=== PATIENT | female | born 1990 | race Caucasian/White ===

== ENCOUNTER → 2018-01-16 | Outpatient (CLI) | payer OTHER ==
[2018-01-16 09:22] LABS: BASO # 0.1 10^3/uL (0.0-0.2); BASO % 0.7 % (0.0-1.0); EOS # 0.2 10^3/uL (0.0-0.50); EOS % 2.3 % (0.0-3.0); HEMATOCRIT 42.3 % (36.0-47.0); HEMOGLOBIN 14.4 g/dl (12.0-15.5); IMMATURE GRANULOCYTE % 0.5 % (0-3.0); LYMPH # 2.6 10^3/uL (1.5-6.5); LYMPH % 28.9 % (24.0-44.0); MEAN CORPUSCULAR HEMOGLOBIN 30.9 pg (27.0-33.0); MEAN CORPUSCULAR VOLUME 90.8 fl (80.0-96.0); MONO # 0.6 10^3/uL (0.0-0.8); MONO % 6.8 % (0.0-5.0); NEUTROPHILS # 5.6 10^3/uL (1.8-7.7); NEUTROPHILS % 60.8 % (36.0-66.0); PLATELET COUNT, AUTOMATED 311 10^3/uL (150-450); RED BLOOD COUNT 4.66 10^6/uL (4.00-5.40); RED CELL DISTRIBUTION WIDTH 12.6 % (11.5-14.5); WHITE BLOOD COUNT 9.2 10^3/uL (4.0-10.0)
[2018-01-16 09:57] LABS: ALBUMIN 3.4 GM/DL (3.2-5.2); ALBUMIN/GLOBULIN RATIO 1.03 (1.00-1.93); ALKALINE PHOSPHATASE 67 U/L (45-117); ALT/SGPT 19 U/L (12-78); ANION GAP 6 MEQ/L (8-16); AST/SGOT 11 U/L (7-37); BILIRUBIN,TOTAL 0.3 MG/DL (0.2-1.0); BLOOD UREA NITROGEN 13 MG/DL (7-18); CALCIUM LEVEL 8.8 MG/DL (8.5-10.1); CARBON DIOXIDE LEVEL 27 MEQ/L (21-32); CHLORIDE LEVEL 110 MEQ/L (98-107); CHOLESTEROL LEVEL 164 MG/DL (<200); CHOLESTEROL RISK RATIO 2.562 (<5); CREATININE FOR GFR 0.77 MG/DL (0.55-1.30); FREE T4 0.85 NG/DL (0.76-1.46); GLOMERULAR FILTRATION RATE > 60.0 (>60); GLUCOSE, FASTING 85 MG/DL (70-100); HDL CHOLESTEROL 64 MG/DL (>40); LDL CHOLESTEROL 83.6 MG/DL (<100); NON-HDL-C 100 MG/DL; POTASSIUM SERUM 4.6 MEQ/L (3.5-5.1); SODIUM LEVEL 143 MEQ/L (136-145); TOTAL PROTEIN 6.7 GM/DL (6.4-8.2); TRIGLYCERIDES LEVEL 82 MG/DL (<150)
[2018-01-16 10:13] LABS: VITAMIN B12 LEVEL 317 PG/ML
[2018-01-16 10:15] LABS: FOLATE 10.5 NG/ML
== END ==
LOC: M LAB 08:46
DX: M77.31 Calcaneal spur, right foot (principal); E28.2 Polycystic ovarian syndrome; Z13.220 Encounter for screening for lipoid disorders; R20.2 Paresthesia of skin; M79.671 Pain in right foot
CPT/HCPCS: 73620

== ENCOUNTER → 2018-02-23 | Outpatient (CLI) | payer OTHER | LOC: M RAD 10:29 | DX: M79.671 Pain in right foot (principal) | CPT/HCPCS: 73630 ==

== ENCOUNTER → 2018-05-28 | Outpatient (REF) | payer OTHER | LOC: M SFHCWAGY 10:41 | DX: Z12.4 Encounter for screening for malignant neoplasm of cervix (principal) ==

== ENCOUNTER → 2018-07-27 | Outpatient (REF) | payer OTHER | LOC: M SFHCLERA 11:58 | DX: R30.0 Dysuria (principal) | CPT/HCPCS: 87086 ==

== ENCOUNTER 2018-10-14 11:22 | Day surgery (SDC) | payer OTHER ==
[~2018-10-14] VITALS: Ht 157.5 cm; Wt 121.1 kg
[~2018-10-14 11:22] MED LIST: /ONDA4TA; GLYCOPYRROLATE INJ 0.2 MG/ML 2 ML VIAL As Ordered ONE; LIDOCAINE 2% INJ 100 MG/5 ML SDV (FOR ANES.) As Ordered ONE; MIDAZOLAM INJ 2 MG/2 ML VIAL (J2250) As Ordered ONE; NEOSTIGMINE 10 MG/10 ML VIAL (J2710) As Ordered ONE; ONDANSETRON 4MG/2ML VIAL (J2405) As Ordered ONE; PROPOFOL 200 MG/20 ML VIAL As Ordered ONE; ROCURONIUM BROMIDE 50 MG/5 ML VIAL As Ordered ONE; dexameTHASONE 4 MG/ML 1ML VIAL (J1100) As Ordered ONE; fentaNYL 100 MCG/2 ML INJECTION (J3010) As Ordered ONE
[2018-10-14 11:55] LABS: URINE PREG TEST NEGATIVE (NEGATIVE)
[2018-10-14 12:00] LABS: HEMOGLOBIN 15.1 g/dl (12.0-15.5); MEAN CORPUSCULAR HEMOGLOBIN 30.4 pg (27.0-33.0); MEAN CORPUSCULAR HGB CONC 34.3 g/dl (32.0-36.5); MEAN CORPUSCULAR VOLUME 88.5 fl (80.0-96.0); PLATELET COUNT, AUTOMATED 338 10^3/uL (150-450); RED BLOOD COUNT 4.97 10^6/uL (4.00-5.40); WHITE BLOOD COUNT 8.8 10^3/uL (4.0-10.0)
[2018-10-14] MEDS ORDERED: BUPIVACAINE HCL 0.25% 30 ML VIAL As Ordered ONE (12:22)
[2018-10-14] MEDS ORDERED: LR 1,000 ML IV ONE (13:00)
[2018-10-14] MEDS ORDERED: OXYC1TAB23 PO (13:03)
[2018-10-14] MEDS ORDERED: fentaNYL 100 MCG/2 ML INJECTION (J3010) As Ordered ONE ×2 (13:53→14:42)
[2018-10-14] MEDS ORDERED: fentaNYL 250 MCG/5 ML INJECTION (J3010) As Ordered ONE (14:15)
[2018-10-14] MEDS ORDERED: SUGAMMADEX SODIUM 500 MG/5 ML VIAL (BRIDION) As Ordered ONE (14:28)
[2018-10-14] MEDS ORDERED: PERCOCET 5MG/325MG TAB As Ordered ONE (14:42)
[2018-10-14] MEDS: fentaNYL 100 MCG/2 ML INJECTION (J3010) IV PRN ×4 (14:44→15:10)
[2018-10-14] MEDS ORDERED: PERCOCET 5MG/325MG TAB PO PRN ×2 (14:45)
[2018-10-14] MEDS ORDERED: LR 1,000 ML IV SCH ×2 (14:45)
[2018-10-14] MEDS ORDERED: ONDANSETRON 4MG/2ML VIAL (J2405) IV PRN (14:45)
[2018-10-14] MEDS: HYDROMORPHONE HCL 0.5 MG/ 0.5 ML SYRINGE (J1170 PER 1) IV PRN ×2 (15:16→15:21)
--- NOTE | 2018-10-14 16:10 | RO ---
DATE OF PROCEDURE: 10/14/2018 PREPROCEDURE DIAGNOSIS: Pelvic pain status post Essure. POSTPROCEDURE DIAGNOSIS: Pelvic pain status post Essure. OPERATIVE PROCEDURE: Laparoscopic excision of Essure devices. SURGEON: Mckinley Mars MD ACCOUNTING AUDITOR: ANESTHESIA: General endotracheal. ESTIMATED BLOOD LOSS: Minimal. URINE OUTPUT: 100 mL FINDINGS: Bilateral appropriate placement of Essure devices proximal portion of fallopian tubes. Normal uterus, fallopian tubes and ovaries. Normal upper abdomen. DESCRIPTION OF PROCEDURE: The patient was taken to the operating room where general endotracheal anesthesia was induced. She was prepped and draped in a sterile fashion in the dorsal lithotomy position. A Kaye catheter was placed. A [place] uterine snap tenaculum was placed. A periumbilical incision made with the scalpel. A Veress needle was placed through this incision while tenting up on the skin of the abdomen. Intraabdominal location of the Veress needle was assessed with the use of saline filled syringe. Pneumoperitoneum was created. The Veress needle was removed. A 5 mm trocar using Visiport was inserted through this incision. A 5 mm scope with camera used to visualize the abdomen and pelvis. Two 5 mm suprapubic ports were placed under direct visualization. Grasping instruments were used to grasp the right cornua of the uterus. Endo Cedric were used to dissect the antimesenteric side of the proximal fallopian tube sharply until the Essure device was identified. The remainder of the device was dissected with a combination of blunt and sharp dissection. The device was then grasped with [place] and gently teased out of the surrounding tissue. Device was removed intact on the right. A second fragment of the device, however, was noted and was removed intact. No portion of the fallopian tube was removed. Attention was turned to the left side and the left cornual region was grasped with a grasping instrument and an incision was created using Monopolar Endo Cedric at the antimesenteric side of the fallopian tube until the Essure device was noted. This was dissected free from underlying tissue and removed intact. Good hemostasis was noted after irrigation was performed. The pneumoperitoneum was released. All instruments were removed. Skin was closed with #4-0 Vicryl subcuticular sutures. Sponge, needle and instrument counts were correct. MTDD
[2018-10-14 16:50] VITALS: BP 131/77
== END 2018-10-14 17:00 | disposition home or self-care (01) ==
LOC: M SDC 11:22
PROVIDERS: ATTEND Specialist
DX: R10.2 Pelvic and perineal pain (principal); E28.2 Polycystic ovarian syndrome; R06.83 Snoring; E66.9 Obesity, unspecified; Z68.42 Body mass index [BMI] 45.0-49.9, adult; Z98.51 Tubal ligation status
CPT/HCPCS: 36415; 58679; 84703; 85027; 88300; J1100; J1170; J2250; J2405; J3010

== ENCOUNTER → 2022-07-24 | Outpatient (REF) ==
[~2022-07-24] MED LIST changes: -/ONDA4TA; -GLYCOPYRROLATE INJ 0.2 MG/ML 2 ML VIAL As Ordered ONE; -LIDOCAINE 2% INJ 100 MG/5 ML SDV (FOR ANES.) As Ordered ONE; -MIDAZOLAM INJ 2 MG/2 ML VIAL (J2250) As Ordered ONE; -NEOSTIGMINE 10 MG/10 ML VIAL (J2710) As Ordered ONE; +ONDA-1; -ONDANSETRON 4MG/2ML VIAL (J2405) As Ordered ONE; +OXYC1TAB23 PO; -PROPOFOL 200 MG/20 ML VIAL As Ordered ONE; -ROCURONIUM BROMIDE 50 MG/5 ML VIAL As Ordered ONE; -dexameTHASONE 4 MG/ML 1ML VIAL (J1100) As Ordered ONE; -fentaNYL 100 MCG/2 ML INJECTION (J3010) As Ordered ONE
== END ==
LOC: M LAB 09:33
PROVIDERS: ATTEND Nurse Practitioner Adult Health
DX: Z02.1 Encounter for pre-employment examination (principal)

== ENCOUNTER → 2023-01-28 | Outpatient (CLI) | payer OTHER ==
[~2023-01-28] MED LIST changes: +PROHANCE 279.3MG/ML 15ML VIAL As Ordered ONE; +PROHANCE 279.3MG/ML 5ML VIAL As Ordered ONE
== END ==
LOC: M RAD 16:51
PROVIDERS: ATTEND Surgery Vascular Surgery
DX: I82.412 Acute embolism and thrombosis of left femoral vein (principal); N88.8 Other specified noninflammatory disorders of cervix uteri; N83.291 Other ovarian cyst, right side
CPT/HCPCS: 72198; A9576

== ENCOUNTER → 2023-04-21 | Outpatient (CLI) | payer OTHER ==
[~2023-04-21] MED LIST changes: -PROHANCE 279.3MG/ML 15ML VIAL As Ordered ONE; -PROHANCE 279.3MG/ML 5ML VIAL As Ordered ONE
== END ==
LOC: M RAD 12:49
PROVIDERS: ATTEND Surgery Vascular Surgery
DX: I82.412 Acute embolism and thrombosis of left femoral vein (principal)

== ENCOUNTER → 2023-05-28 | Outpatient (REF) | payer OTHER | LOC: M PLALAB 14:34 | PROVIDERS: ATTEND Obstetrics & Gynecology | DX: Z12.4 Encounter for screening for malignant neoplasm of cervix (principal); R87.610 Atypical squamous cells of undetermined significance on cytologic smear of cervix (ASC-US); R87.810 Cervical high risk human papillomavirus (HPV) DNA test positive ==

== ENCOUNTER → 2023-07-08 | Outpatient (REF) | payer OTHER | LOC: M SFHCWAGY 10:20 | PROVIDERS: ATTEND Obstetrics & Gynecology | DX: R87.612 Low grade squamous intraepithelial lesion on cytologic smear of cervix (LGSIL) (principal); D26.9 Other benign neoplasm of uterus, unspecified ==

== ENCOUNTER → 2024-03-10 | Outpatient (REF) | LOC: M LAB 11:07 | PROVIDERS: ATTEND Family Medicine | DX: Z02.89 Encounter for other administrative examinations (principal) ==

== ENCOUNTER → 2024-06-14 | Outpatient (REF) | LOC: M EMP 10:24 | PROVIDERS: ATTEND Family Medicine | DX: Z11.52 Encounter for screening for COVID-19 (principal) ==